=== PATIENT | female | born 1985 | race Caucasian/White ===

== ENCOUNTER 2019-08-15 11:11 | Emergency (ER) | payer OTHER ==
[2019-08-15] MEDS ORDERED: Famotidine 20 MG/2 ML SDV IVPUSH ONE (11:59)
[2019-08-15] MEDS ORDERED: Sodium Chloride 0.9% 10 ML Syringe FLUSH PRN (11:59)
[2019-08-15] MEDS ORDERED: Ondansetron 4 MG/2 ML SDV IVPUSH ONE (11:59)
[2019-08-15] MEDS ORDERED: Sodium Chloride 0.9% 1,000 ML IV ONE ×2 (11:59→13:11)
--- NOTE | 2019-08-15 12:08 | EDM.PDOC ---
ED HPI GENERAL MEDICAL PROBLEM - General Chief Complaint: Gastrointestinal Problem Stated Complaint: GI SYMPTOMS X 1 WEEK Time Seen by Provider: 08/15/19 11:51 Source of Information: Reports: Patient History Limitations: Reports: No Limitations - History of Present Illness INITIAL COMMENTS - FREE TEXT/NARRATIVE: 33-year-old female presents for GI symptoms. Patient reports that she's been experiencing similar symptoms since 2009. Sounds as if she is seen providers intermittently for this. She describes having stool test and several blood tests done. She is from [place] and is here visiting. She states that since coming up to [place], about 3 weeks ago, her symptoms have significantly worsened. She's noticed for the last week that she cannot eat or lay flat as this worsens her symptoms. She describes burning in the upper abdomen and epigastric area. No radiation into her back. No abdominal pain. She's has been unable to Eat as this does this worsens the burning. She also states laying flat worsens the burning. She feels weak, nauseated and lightheaded. She also feels bloated. No fevers, chills, diarrhea, constipation, abdominal pain, syncope or vomiting. She has been trying all natural supplements including mare and olive leaf extract with little to no relief in her symptoms. She has never seen a information clerk for this problem. She has never had any imaging or an upper endoscopy for her symptoms. She denies any chance of . - Related Data Allergies Allergy/AdvReac Type Severity Reaction Status Date / Time No Known Allergies Allergy Verified 08/15/19 11:29 Home Meds: Home Meds Mare 500 mg PO DAILY PRN 08/15/19 [History] L.acidoph,Paracasei, B.lactis [Probiotic] 1 each PO DAILY 08/15/19 [History] [place] Extract 250 mg PO BID 08/15/19 [History] Omeprazole 20 mg PO ONETIME #14 cap.sr 08/15/19 [Rx] Ondansetron [Zofran ODT] 4 mg PO Q6H PRN #20 tab.dis 08/15/19 [Rx] Past Medical History HEENT History: Reports: Impaired Vision Cardiovascular History: Reports: None Respiratory History: Reports: None Gastrointestinal History: Reports: None Genitourinary History: Reports: None PREPRESS TECHNICIAN History: Reports: None Musculoskeletal History: Reports: None Neurological History: Reports: None Psychiatric History: Reports: None Endocrine/Metabolic History: Reports: None Hematologic History: Reports: None Immunologic History: Reports: None Oncologic (Cancer) History: Reports: None Dermatologic History: Reports: None - Infectious Disease History Infectious Disease History: Reports: None - Past Surgical History Head Surgeries/Procedures: Reports: None HEENT Surgical History: Reports: Oral Surgery Social & Family History - Tobacco Use Smoking Status *Q: Never Smoker - Caffeine Use Caffeine Use: Reports: None - Recreational Drug Use Recreational Drug Use: No ED ROS GENERAL - Review of Systems Review Of Systems: See Below Constitutional: Reports: Weight Loss. Denies: Fever, Chills GI/Abdominal: Reports: Nausea, Other (burning epigastric area). Denies: Abdominal Pain, Constipation, Diarrhea, Hematochezia, Melena, Vomiting : Reports: No Symptoms. Denies: Dysuria ED EXAM, GI/ABD - Physical Exam Exam: See Below Exam Limited By: No Limitations General Appearance: Alert, WD/WN, No Apparent Distress, Thin Throat/Mouth: Normal Inspection, Normal Voice, No Airway Compromise Respiratory/Chest: No Respiratory Distress, Lungs Clear, Normal Breath Sounds Cardiovascular: Normal Peripheral Pulses, Regular Rate, Rhythm, No Murmur GI/Abdominal Exam: Normal Bowel Sounds, Soft, Non-Tender, No Distention, Other ( negative murphys sign, no pain at mcburnies point) Neurological: Alert, Oriented, Normal Cognition Psychiatric: Normal Affect, Normal Mood Skin Exam: Warm, Dry, Normal Color Course - Vital Signs Last Recorded V/S: Last Vital Signs Temp 97.6 F 08/15/19 11:27 Pulse 95 08/15/19 11:27 Resp 16 08/15/19 11:27 BP 112/65 08/15/19 11:27 Pulse Ox 100 08/15/19 11:27 Orthostatic Blood Pressure [ 94/72 Standing] Orthostatic Blood Pressure [ 93/61 Supine] - Orders/Labs/Meds Orders: Active Orders 24 hr Category Date Time Status Orthostatic Vital Signs [RC] ASDIRECTED Care 08/15/19 11:59 Active Peripheral IV Care [RC] . DIRECTED Care 08/15/19 11:59 Active Peripheral IV Insertion Adult [OM.PC] Routine Oth 08/15/19 11:56 Ordered Labs: Laboratory Tests 08/15/19 08/15/19 08/15/19 Range/Units 12:15 12:15 12:15 WBC 5.58 (3.98-10.04) K/mm3 RBC 4.32 (3.98-5.22) M/mm3 Hgb 13.0 (11.2-15.7) gm/dl Hct 39.0 (34.1-44.9) % MCV 90.3 (79.4-94.8) fl MCH 30.1 (25.6-32.2) pg MCHC 33.3 (32.2-35.5) g/dl RDW Std Deviation 40.3 (36.4-46.3) fL Plt Count 322 (182-369) K/mm3 MPV 10.5 (9.4-12.3) fl Neutrophils % (Manual) 68 H (40-60) % Band Neutrophils % 0 (0-10) % Lymphocytes % (Manual) 27 (20-40) % Atypical Lymphs % 0 % Monocytes % (Manual) 5 (2-10) % Eosinophils % (Manual) 0 L (0.7-5.8) % Basophils % (Manual) 0 L (0.1-1.2) Platelet Estimate Adequate Plt Morphology Comment Normal RBC Morph Comment Normal Sodium 136 (136-145) mEq/L Potassium 4.2 (3.5-5.1) mEq/L Chloride 99 (98-107) mEq/L Carbon Dioxide 20 L (21-32) mEq/L Anion Gap 21.2 H (5-15) BUN 9 (7-18) mg/dL Creatinine 0.7 (0.55-1.02) mg/dL Est Cr Clr Drug Dosing 91.72 mL/min Estimated GFR (MDRD) > 60 (>60) mL/min BUN/Creatinine Ratio 12.9 L (14-18) Glucose 67 L (74-106) mg/dL Calcium 9.4 (8.5-10.1) mg/dL Magnesium 1.9 (1.8-2.4) mg/dl Total Bilirubin 0.7 (0.2-1.0) mg/dL AST 13 L (15-37) U/L ALT 14 (14-59) U/L Alkaline Phosphatase 75 (46-116) U/L C-Reactive Protein < 0.2 (<1.0) mg/dL Total Protein 8.2 (6.4-8.2) g/dl Albumin 4.4 (3.4-5.0) g/dl Globulin 3.8 gm/dL Albumin/Globulin Ratio 1.2 (1-2) HCG, Qual Negative (NEGATIVE) Urine Color (Yellow) Urine Appearance (Clear) Urine pH (5.0-8.0) Ur Specific [place] (1.005-1.030) Urine Protein (Negative) Urine Glucose (UA) (Negative) Urine Ketones (Negative) Urine Occult Blood (Negative) Urine Nitrite (Negative) Urine Bilirubin (Negative) Urine Urobilinogen (0.2-1.0) Ur Leukocyte Esterase (Negative) Urine RBC (0-5) /hpf Urine WBC (0-5) /hpf Ur Squamous Epith Cells (0-5) /hpf Urine Bacteria (FEW) /hpf Urine Mucus (FEW) /hpf 08/15/19 Range/Units 13:45 WBC (3.98-10.04) K/mm3 RBC (3.98-5.22) M/mm3 Hgb (11.2-15.7) gm/dl Hct (34.1-44.9) % MCV (79.4-94.8) fl MCH (25.6-32.2) pg MCHC (32.2-35.5) g/dl RDW Std Deviation (36.4-46.3) fL Plt Count (182-369) K/mm3 MPV (9.4-12.3) fl Neutrophils % (Manual) (40-60) % Band Neutrophils % (0-10) % Lymphocytes % (Manual) (20-40) % Atypical Lymphs % % Monocytes % (Manual) (2-10) % Eosinophils % (Manual) (0.7-5.8) % Basophils % (Manual) (0.1-1.2) Platelet Estimate Plt Morphology Comment RBC Morph Comment Sodium (136-145) mEq/L Potassium (3.5-5.1) mEq/L Chloride (98-107) mEq/L Carbon Dioxide (21-32) mEq/L Anion Gap (5-15) BUN (7-18) mg/dL Creatinine (0.55-1.02) mg/dL Est Cr Clr Drug Dosing mL/min Estimated GFR (MDRD) (>60) mL/min BUN/Creatinine Ratio (14-18) Glucose (74-106) mg/dL Calcium (8.5-10.1) mg/dL Magnesium (1.8-2.4) mg/dl Total Bilirubin (0.2-1.0) mg/dL AST (15-37) U/L ALT (14-59) U/L Alkaline Phosphatase (46-116) U/L C-Reactive Protein (<1.0) mg/dL Total Protein (6.4-8.2) g/dl Albumin (3.4-5.0) g/dl Globulin gm/dL Albumin/Globulin Ratio (1-2) HCG, Qual (NEGATIVE) Urine Color Light yellow (Yellow) Urine Appearance Clear (Clear) Urine pH 5.5 (5.0-8.0) Ur Specific [place] 1.015 (1.005-1.030) Urine Protein Negative (Negative) Urine Glucose (UA) Negative (Negative) Urine Ketones 3+ H (Negative) Urine Occult Blood Negative (Negative) Urine Nitrite Negative (Negative) Urine Bilirubin Negative (Negative) Urine Urobilinogen 0.2 (0.2-1.0) Ur Leukocyte Esterase Trace H (Negative) Urine RBC 0-5 (0-5) /hpf Urine WBC 0-5 (0-5) /hpf Ur Squamous Epith Cells 10-20 H (0-5) /hpf Urine Bacteria Few (FEW) /hpf Urine Mucus Few (FEW) /hpf Meds: Medications Discontinued Medications Generic Name Dose Route Start Last Admin Trade Name Freq PRN Reason Stop Dose Admin Dextrose/Water 25 ml 08/15/19 13:09 08/15/19 13:52 Dextrose 50% In Water IVPUSH 25 ml ASDIRECTED PRN Administration Hypoglycemia Famotidine 20 mg 08/15/19 11:59 08/15/19 12:23 Pepcid IVPUSH 08/15/19 12:00 20 mg ONETIME ONE Administration Sodium Chloride 1,000 mls @ 999 mls/hr 08/15/19 11:59 08/15/19 12:17 Normal Saline IV 08/15/19 12:59 999 mls/hr ONETIME ONE Administration Sodium Chloride 1,000 mls @ 999 mls/hr 08/15/19 13:11 08/15/19 13:52 Normal Saline IV 08/15/19 14:11 999 mls/hr ONETIME ONE Administration Ondansetron HCl 4 mg 08/15/19 11:59 08/15/19 12:17 Zofran IVPUSH 08/15/19 12:00 4 mg ONETIME ONE Administration Sodium Chloride 10 ml 08/15/19 11:59 08/15/19 12:23 Saline Flush FLUSH 10 ml ASDIRECTED PRN Administration Keep Vein Open - Re-Assessments/Exams Free Text/Narrative Re-Assessment/Exam: 08/15/19 15:00 I reviewed the labs with the patient. Her nausea has significantly improved and she has eaten some crackers. I will prescribe her some omeprazole and zofran for the nausea. Recommend follow-up with PCP when she returns home as she needs an EGD. Will discharge home tonight. Discharge instructions as documented. Departure - Departure Time of Disposition: 15:06 Disposition: Home, Self-Care 01 Condition: Fair Clinical Impression: Nausea & vomiting, Gastritis - Discharge Information *PRESCRIPTION DRUG MONITORING PROGRAM REVIEWED*: No *COPY OF PRESCRIPTION DRUG MONITORING REPORT IN PATIENT KARINE: No Prescriptions: Omeprazole 20 mg PO ONETIME #14 cap.sr Ondansetron [Zofran ODT] 4 mg PO Q6H PRN #20 tab.dis PRN Reason: Nausea/Vomiting Instructions: Gastritis, Adult, [id number], Nausea and Vomiting, Adult, Easy- to-Read Referrals: PCP,Not In Area [Primary Care Provider] - Forms: ED Department Discharge Additional Instructions: Take the omeprazole as prescribed. 1 Daily. Take 30 minutes prior to breakfast. Zofran 1 tab sublingual every 6-8 hours as needed for nausea. Recommend bland foods such as soup broth, bananas, applesauce, etc. Follow-up with your primary care provider as soon as you return home. Recommend an EGD to further evaluate your symptoms. Please return to ER if your symptoms change or worsen. - My Orders Last 24 Hours: My Active Orders 08/15/19 11:56 Peripheral IV Insertion Adult [OM.PC] Routine 08/15/19 11:59 Orthostatic Vital Signs [RC] ASDIRECTED Peripheral IV Care [RC] . DIRECTED - Assessment/Plan Last 24 Hours: My Active Orders 08/15/19 11:56 Peripheral IV Insertion Adult [OM.PC] Routine 08/15/19 11:59 Orthostatic Vital Signs [RC] ASDIRECTED Peripheral IV Care [RC] . DIRECTED
[2019-08-15] MEDS ORDERED: 50% Dextrose in Water 50 ML Syringe IVPUSH PRN (13:09)
== END 2019-08-15 15:30 | disposition home or self-care (01) ==
LOC: JD.ED 11:11
DX: K29.70 Gastritis, unspecified, without bleeding (principal)
CPT/HCPCS: 36415; 80053; 81001; 83735; 84703; 85007; 85027; 86140; 96361; 96374; 96375; 99284; J2405; J3490; J7040; J7060; 99283